=== PATIENT | male | born 1945 | race Hispanic/Latino ===

== ENCOUNTER → 2018-07-09 | Outpatient (CLI) | payer OTHER | END | disposition home or self-care (01) | LOC: SHCH 10:53 | PROVIDERS: ATTEND Internal Medicine Cardiovascular Disease | DX: I08.1 Rheumatic disorders of both mitral and tricuspid valves (principal) | CPT/HCPCS: 93306 ==

== ENCOUNTER → 2018-07-10 | Outpatient (CLI) | payer OTHER | END | disposition home or self-care (01) | LOC: SHCH 12:41 | PROVIDERS: ATTEND Internal Medicine Cardiovascular Disease | DX: I65.23 Occlusion and stenosis of bilateral carotid arteries (principal); I73.9 Peripheral vascular disease, unspecified | CPT/HCPCS: 93880; 93925 ==

== ENCOUNTER → 2018-07-15 | Outpatient (CLI) | payer OTHER ==
[~2018-07-15] MED LIST: REGADENOSON 0.4 MG/5 ML PF SYG IVP SCH
== END | disposition home or self-care (01) ==
LOC: SHCH 07:46
PROVIDERS: ATTEND Internal Medicine Cardiovascular Disease
DX: I10 Essential (primary) hypertension (principal); I25.10 Atherosclerotic heart disease of native coronary artery without angina pectoris
CPT/HCPCS: 78452; 93017; 96374; A9500 ×2; J2785

== ENCOUNTER 2018-08-26 08:30 | Day surgery (SDC) | payer OTHER ==
[2018-08-22 09:50] VITALS: BP 128/67
[2018-08-22 10:13] LABS: BASOPHILS % (AUTO) 0.6 % (0.0-5.0); EOSINOPHILS % (AUTO) 10.4 % (0.0-8.0); HEMATOCRIT 37.7 % (42-54); LYMPHOCYTES % (AUTO) 31.2 % (21.0-51.0); MEAN CORPUSCULAR HEMOGLOBIN 30.7 pg (27.0-33.0); MEAN CORPUSCULAR HGB CONC 33.4 g/dL (32.0-36.0); MEAN CORPUSCULAR VOLUME 91.8 fL (79-99); MONOCYTES % (AUTO) 8.6 % (3.0-13.0); NEUTROPHILS % (AUTO) 49.2 % (40.0-77.0); PLATELET COUNT (AUTO) 136 K/uL (130-400); RED BLOOD CELL COUNT(AUTO) 4.11 MIL/uL (4.50-6.20); RED CELL DISTRIBUTION WIDTH 13.3 % (11.0-15.5); WHITE BLOOD COUNT (AUTO) 5.5 K/uL (4.8-10.8)
[2018-08-22 10:18] LABS: BILIRUBIN,URINE Negative (NEGATIVE); COLOR,URINE Yellow (YELLOW); CREATININE 1.3 mg/dL (0.5-1.5); GLUCOSE, URINE (UA) Negative (NEGATIVE); KETONES,URINE Negative (NEGATIVE); LEUKOCYTE ESTERASE ,URINE Small (NEGATIVE); NITRATE,URINE Negative (NEGATIVE); OCCULT BLOOD,URINE Negative (NEGATIVE); PH,URINE 5.5 (5.0-8.0); POTASSIUM 4.5 mmol/L (3.5-5.1); PROTEIN,URINE Trace (NEGATIVE)
[2018-08-22 10:24] LABS: INR 0.96 (0.85-1.15); PARTIAL THROMBOPLASTIN TIME 29.1 SEC (26.3-35.5); PROTHROMBIN TIME 10.1 SEC (9.6-11.6)
[2018-08-22 10:27] LABS: APPEARANCE,URINE CLEAR (CLEAR)
[2018-08-22 10:32] LABS: BACTERIA,URINE Rare /HPF (None Seen); RBC,URINE 0-1 /HPF (0-1); SQUAMOUS EPITHELIAL CELL,UR Rare /HPF (0-2); WBC,URINE 0-1 /HPF (0-1)
--- NOTE | 2018-08-25 13:20 | NUR ---
ABNORMAL LABS REPORTED ABNORMAL LABS UA, CREATINE 1.3, BUN [address] [facility] [address] GRANADOS. NO NEW ORDERS.
[2018-08-26] VITALS (12 sets, daily range): BP systolic 129–148; BP diastolic 66–75
[~2018-08-26] VITALS: Ht 167.6 cm; Wt 77.4 kg
[~2018-08-26 08:30] MED LIST changes: +ACAR50TA PO; +ACET-66 PO; +AEC81 PO; +CHOL100046 PO; +FERR325T22 PO; +FISH1CAP20 PO; +HYDR25TA PO; +KETO5DRO6 OU; +LISI40TA4 PO; +METF-446 PO; +METO100T14 PO; +PRAV40TA3 PO; +PRAZ1CAP5 PO; -REGADENOSON 0.4 MG/5 ML PF SYG IVP SCH; +SERT100T12 PO; +VITA100012 PO
--- NOTE | 2018-08-26 09:00 | NUR ---
RECEIVED AWAKE ALERT ,NO COMPLAINTS ,ACCOMPANIED BY ,PATIENT HARD OF HEARING,,ALERT ,COHERENT,,,MADE COMFORTABL,HX OF PTSD,AND IS ON MEDICATIONM,CALL [facility] IN REACH
[2018-08-26] MEDS ORDERED: SODIUM CHLORIDE 0.9% 1000ML 1,000 ML IV ONE (09:50)
[2018-08-26] MEDS ORDERED: ATOR40TA71 PO (10:19)
[2018-08-26] MEDS ORDERED: PRAV40TA3 PO (10:22)
[2018-08-26] MEDS ORDERED: SODIUM BICARB 50MEQ 50ML VIAL ONE (12:26)
--- NOTE | 2018-08-26 12:26 | NUR ---
RESTING COMFORTABLY WITH FAMILY,NO COMPLAINTS ,CALL [facility] IN REACH
[2018-08-26] MEDS ORDERED: IOHEXOL 350 MG/ML 100ML INFUS..BTL IV ONE (12:27)
[2018-08-26] MEDS ORDERED: NITROGLYCERIN 5 MG/ML 10 ML VIAL IV ONE (12:27)
[2018-08-26] MEDS ORDERED: LIDOCAINE HCL 2% 20ML ONE (12:27)
[2018-08-26] MEDS ORDERED: IOHEXOL-350 50ML VIAL IV ONE (12:27)
--- NOTE | 2018-08-26 12:30 | NUR ---
TO [employer]AN[employer] SUPERVISOR
[2018-08-26] MEDS ORDERED: MIDAZOLAM HCL 1 MG/ML 2ML VIAL ONE (12:39)
[2018-08-26] MEDS ORDERED: MEPERIDINE-PF 25 MG/ML SYG ONE (12:39)
[2018-08-26] MEDS ORDERED: SODIUM CHLORIDE 0.9% 1000ML 1,000 ML IV SCH (13:43)
[2018-08-26] MEDS ORDERED: ACETAMINOPHEN-CODEINE 300/30MG TAB PO PRN ×2 (13:45)
[2018-08-26] MEDS ORDERED: GLUCAGON 1MG KIT 1 MG ML IM PRN (13:45)
[2018-08-26] MEDS ORDERED: DEXTROSE 50%-WATER 50 ML DISP.SYRIN IV PRN (13:45)
--- NOTE | 2018-08-26 16:00 | NUR ---
INSTRUCTED SPOUSE AND PATIENT ON HOW TO CHECK FOR BLEEDING TO RT GROIN ,RETURNS DEMONSTRATION ,PATIENT AND SPOUSE VERBALIZE UNDERSTANDING,
[2018-08-26] MEDS ORDERED: INSULIN HUMULIN R 100 UNIT/ML 3ML SQ SCH (16:30)
--- NOTE | 2018-08-26 17:25 | NUR ---
AMBULATES TO BR ,STEADY GAIT,VOIODS WITH NO PROBLEM, STATES FEELS FINE ,BACK TO ROOM TO GET DRESSED TO GO HOME
--- NOTE | 2018-08-26 17:50 | NUR ---
TO CAR VIA W/C,,SITE TO RT GROIN CLEAN AND DRY ,NO HEMATOMA ,NO BLEEDING
== END 2018-08-26 17:50 ==
LOC: DAH 08:30
PROVIDERS: ATTEND Internal Medicine Cardiovascular Disease
DX: I25.810 Atherosclerosis of coronary artery bypass graft(s) without angina pectoris (principal); E11.9 Type 2 diabetes mellitus without complications; Z88.8 Allergy status to other drugs, medicaments and biological substances; Z79.899 Other long term (current) drug therapy; Z79.84 Long term (current) use of oral hypoglycemic drugs; E78.5 Hyperlipidemia, unspecified; M19.90 Unspecified osteoarthritis, unspecified site; Z98.890 Other specified postprocedural states; Z83.3 Family history of diabetes mellitus; Z79.01 Long term (current) use of anticoagulants; I11.0 Hypertensive heart disease with heart failure; I50.32 Chronic diastolic (congestive) heart failure
CPT/HCPCS: 36415; 71045; 80048; 81001; 82948 ×2; 85025; 85610; 85730; 93005; 93459; A4606; C1760; C1769; C1894; J1644; J2175; J2250; J3490 ×3; J7030; Q9965; Q9967 ×2; 99156; 99157

== ENCOUNTER → 2024-02-24 | Outpatient (CLI) | payer OTHER ==
[~2024-02-24] MED LIST changes: -ACAR50TA PO; +ACAR50TA5 PO; +ATOR40TA71 PO; +KETO-99 OU; -KETO5DRO6 OU; -LISI40TA4 PO; +LISI40TA9 PO; +SERT-440 PO; -SERT100T12 PO
[2024-02-24] MEDS: REGADENOSON 0.4 MG/5 ML PF SYG IVP ONE (10:03)
== END | disposition home or self-care (01) ==
LOC: SHCH 07:35
PROVIDERS: ATTEND Internal Medicine Cardiovascular Disease
DX: I25.10 Atherosclerotic heart disease of native coronary artery without angina pectoris (principal)
CPT/HCPCS: 78452; 93017; J2785; A9500 ×2